=== PATIENT | male | born 1980 | race Caucasian/White ===

== ENCOUNTER 2017-09-25 14:27 | Emergency (ER) | payer MEDICAID ==
--- OUTSIDE RECORDS SUMMARY | 2017-09-25 14:29 | XMS REPORT ---
:1980 Author Organization eClinicalWorks Care Team Providers Name Role Phone Bell, Na Provider Role Unavailable Allergies, Adverse Reactions, Alerts Substance Reaction Event Type codeine itch Drug Allergy Problems Problem Type Condition Code Onset Dates Condition Status Assessment Reflux K21.9 Active Problem HTN (hypertension) I10 Active Problem Seizures R56.9 Active Problem Depression F32.9 Active Assessment HTN (hypertension) I10 Active Assessment Depression F32.9 Active Problem Reflux K21.9 Active Problem Sinus problem J34.9 Active Medications Medication Code Code Instructions Start End Status Dosage System Date Date Zoloft [facility] 21312392912 100 MG Orally Active 1 tablet Once a day Lamictal ND 98278150223 150 MG Orally Active 1 tablet Twice a day Lisinopril ND 03219947010 20 MG Orally Active 1 tablet Once a day Zyrtec Allergy [facility] 15061872826 10 MG Orally Active 1 tablet Once a day Zantac 150 ND 61904261405 150 MG Orally Active 1 tablet Maximum Once a day at bedtime Strength Results No Known Results Summary Purpose eClinicalWorks Submission
[2017-09-25] MEDS ORDERED: CLINDAMYCIN 600MG/D5W 600 MG/50 ML BAG IV ONE (15:07)
[2017-09-25] MEDS ORDERED: KETOROLAC 30 MG/ML INJ ONE (15:07)
[2017-09-25] MEDS ORDERED: NA CHLORIDE 0.9% 1,000 ML ONE (15:07)
[2017-09-25 15:47] LABS: BUN Blood Urea Nitrogen 11 mg/dL (7-18); Bicarbonate 24 mmol/L (21-32); Glucose Level 103 mg/dL (74-106); Potassium 3.7 mmol/L (3.5-5.1); Sodium Level 140 mmol/L (136-145)
[2017-09-25 15:48] LABS: Absolute Lymphocytes (CBC) 1.7 K/uL (0.7-4.9); Absolute Monocytes 0.6 K/uL (0.1-1.3); Absolute Neutrophil 5.5 K/uL (1.8-8.0); Basophils % 0.1 % (0-1.3); Hematocrit 43.9 % (39.6-49.0); Lymphocytes % 21.4 % (15.3-44.8); MCH 28.7 pg (27.0-35.0); MCV 84.5 fL (80-100); MPV 7.5 fL (7.6-11.3); Monocytes % 8.1 % (3.3-12.3); RBC Red Blood Cell Count 5.19 M/uL (4.33-5.43)
--- NOTE | 2017-09-25 16:07 | RAD REPORT ---
EXAM DESCRIPTION: US - Extremity Nonvascular Limited - 09/25/2017 3:46 pm CLINICAL HISTORY: Left posterior thigh pain and swelling COMPARISON: None FINDINGS: A 13 x 12 x 7 millimeter fluid collection is present within the subcutaneous tissues of th e posterior left thigh 6 millimeters from the skin surface. IMPRESSION: 13 x 12 x 7 millimeter fluid collection within the subcutaneous tissues of the posterior left thigh likely represents a small abscess
[2017-09-25] MEDS ORDERED: DIAZEPAM 10 MG/2 ML INJ SYRINGE ONE (16:35)
[2017-09-25] MEDS ORDERED: LIDOCAINE 1% MPF 5 ML VIAL ONE (16:35)
--- NOTE | 2017-09-25 17:23 | EDPHYS ---
Physician Documentation [facility] Name: Jair Gomez Age: 37 yrs Sex: Male : 1980 Arrival Date: 09/25/2017 Time: 14:29 Bed 25 Private MD: Ava Bell ED Physician Yuriy Coronel HPI: 09/25 14:59 This 37 yrs old Male presents to ER via Ambulatory with complaints of Abscess.snw 14:59 The patient presents with an abscess of the left hamstring. Description: well snw demarcated, erythematous, swollen, tense. Onset: The symptoms/episode began/occurred 4 day(s) ago, and became persistent. Associated signs and symptoms: Pertinent positives: nausea, tenderness. Severity of symptoms: At their worst the symptoms were moderate. The patient has not experienced similar symptoms in the past. The patient has not recently seen a physician. hx of CP, last seizure one month ago. Historical: - Allergies: 14:35 Codeine; aj1 - Home Meds: 14:35 Madhuri Oral [Active]; Baclofen Oral [Active]; Keppra Oral [Active]; Lamictal Oral aj1 [Active]; lisinopril Oral [Active]; Prilosec 2.5 mg Oral suDR [Active]; Primidone Oral [Active]; Zoloft Oral [Active]; Zonegran 25 mg Oral cap [Active]; - PMHx: 14:35 Cerebral Palsy; Seizures; aj1 - Immunization history:: Flu vaccine is up to date. - Social history:: Smoking status: Patient/guardian denies using tobacco. - Ebola Screening: : Patient denies travel to an Ebola-affected area in the 21 days before illness onset. ROS: 14:58 Constitutional: Negative for fever, chills, and weight loss, Eyes: Negative for injury, snw pain, redness, and discharge, ENT: Negative for injury, pain, and discharge, Neck: Negative for injury, pain, and swelling, Cardiovascular: Negative for chest pain, palpitations, and edema, Respiratory: Negative for shortness of breath, cough, wheezing, and pleuritic chest pain, Abdomen/GI: Negative for abdominal pain, nausea, vomiting, diarrhea, and constipation, Back: Negative for injury and pain, : Negative for injury, bleeding, discharge, and swelling, MS/Extremity: Negative for injury and deformity, Neuro: Negative for headache, weakness, numbness, tingling, and seizure, Psych: Negative for depression, anxiety, suicide ideation, homicidal ideation, and hallucinations. 14:58 Skin: Positive for avulsion, cellulitis, of the left upper posterior thigh. Exam: 14:57 Constitutional: This is a well developed, well nourished patient who is awake, alert, snw and in no acute distress. Head/Face: Normocephalic, atraumatic. Eyes: Pupils equal round and reactive to light, extra-ocular motions intact. Lids and lashes normal. Conjunctiva and sclera are non-icteric and not injected. Cornea within normal limits. Periorbital areas with no swelling, redness, or edema. ENT: Nares patent. No nasal discharge, no septal abnormalities noted. Tympanic membranes are normal and external auditory canals are clear. Oropharynx with no redness, swelling, or masses, exudates, or evidence of obstruction, uvula midline. Mucous membranes moist. Neck: Trachea midline, no thyromegaly or masses palpated, and no cervical lymphadenopathy. Supple, full range of motion without nuchal rigidity, or vertebral point tenderness. No Meningismus. Chest/axilla: Normal chest wall appearance and motion. Nontender with no deformity. No lesions are appreciated. Cardiovascular: Regular rate and rhythm with a normal S1 and S2. No gallops, murmurs, or rubs. Normal PMI, no JVD. No pulse deficits. Respiratory: Lungs have equal breath sounds bilaterally, clear to auscultation and percussion. No rales, rhonchi or wheezes noted. No increased work of breathing, no retractions or nasal flaring. Abdomen/GI: Soft, non-tender, with normal bowel sounds. No distension or tympany. No guarding or rebound. No evidence of tenderness throughout. Back: No spinal tenderness. No costovertebral tenderness. Full range of motion. MS/ Extremity: Pulses equal, no cyanosis. Neurovascular intact. Full, normal range of motion. Neuro: Awake and alert, GCS 15, oriented to person, place, time, and situation. Cranial nerves II-XII grossly intact. Motor strength 5/5 in all extremities. Sensory grossly intact. Cerebellar exam normal. Normal gait. Psych: Awake, alert, with orientation to person, place and time. Behavior, mood, and affect are within normal limits. 14:57 Skin: Appearance: normal except for affected area, abscess, that is large, of the left leg, with induration, with pointing, that is obvious, with surrounding cellulitis, cellulitis, that is moderate, well demarcated, on the left upper posterior thigh. Vital Signs: 14:35 BP 119 / 83; Pulse 93; Resp 18; Temp 98.8(O); Pulse Ox 98% on R/A; Weight 108.86 kg aj1 (R); Height 5 ft. 8 in. (172.72 cm) (R); Pain 8/10; 15:41 BP 110 / 58; Pulse 86; Resp 14; Pulse Ox 99% on R/A; Pain 5/10; ch 17:11 BP 125 / 74; Pulse 79; Resp 14; Pulse Ox 100% on R/A; Pain 2/10; ch 14:35 Body Mass Index 36.49 (108.86 kg, 172.72 cm) aj Procedures: 17:24 I \T\ D: Incision and drainage was performed for an abscess of the left left hamstring snw Prepped with hibiclens. Anesthetized with 5 ml's 1% Lidocaine. Incised with #11 blade. Drained moderate amount purulent fluid. Loculations removed. Abscess cavity explored. Packed with iodoform gauze, Dressing: sterile 4x4 gauze, the patient tolerated the procedure well. MDM: 14:44 Patient medically screened. snw 17:23 Data reviewed: vital signs, nurses notes. Data interpreted: Pulse oximetry: on room air snw is 100 %. Interpretation: normal. Counseling: I had a detailed discussion with the patient and/or guardian regarding: the historical points, exam findings, and any diagnostic results supporting the discharge/admit diagnosis, lab results, radiology results, the need for outpatient follow up, to return to the emergency department if symptoms worsen or persist or if there are any questions or concerns that arise at home. Special discussion: I discussed in detail with the patient the higher chance of wound infection based on his presenting history. Based on the history and exam findings, there is no indication for further emergent testing or inpatient evaluation. I discussed with the patient/guardian the need to see the primary care provider for further evaluation of the symptoms. 09/25 14:57 Order name: CBC with Diff; Complete Time: 15:55 snw 09/25 14:57 Order name: Chem 7; Complete Time: 15:49 snw 09/25 14:57 Order name: Blood Culture Adult (2) snw 09/25 14:57 Order name: Extrmty Nonvasular Limited; Complete Time: 16:09 snw 09/25 14:57 Order name: NPO; Complete Time: 15:47 snw 09/25 16:11 Order name: I\T\D Setup; Complete Time: 16:43 snw Administered Medications: 15:46 Drug: Clindamycin 600 mg Route: IVPB; Infused Over: 30 mins; Site: left wrist; ch 16:43 Follow up: IV Status: Completed infusion; IV Intake: 50ml ch 15:47 Drug: NS 0.9% 1000 ml Route: IV; Rate: 75 ml/hr; Site: left wrist; ch 17:54 Follow up: Response: No adverse reaction; IV Status: Order to discontinue infusion mg2 15:47 Drug: TORadol 30 mg Route: IVP; Site: left wrist; ch 16:04 Follow up: Response: No adverse reaction; Pain is decreased ch 16:43 Drug: Valium 2 mg Route: IVP; Site: left wrist; ch 17:21 Follow up: Response: No adverse reaction ch 17:21 Drug: Lidocaine (1 %) 1 vials Volume: 5 ml; Route: Infiltration; ch Disposition: 09/26 14:32 Co-signature as Attending Physician, Yuriy Coronel MD I agree with the assessment and jake plan of care. Disposition: 09/25/17 17:23 Discharged to Home. Impression: Cutaneous abscess of left lower limb. - Condition is Stable. - Discharge Instructions: Skin Abscess, Incision and Drainage, Incision and Drainage, Care After. - Prescriptions for Clindamycin HCl 300 mg Oral Capsule - take 1 capsule by ORAL route every 6 hours for 10 days; 40 capsule. - Medication Reconciliation Form, Thank You Letter, Antibiotic Education, Prescription Opioid Use form. - Follow up: Ava Bell MD; When: 2 - 3 days; Reason: Recheck today's complaints, Continuance of care, Re-evaluation by your physician. Follow up: Emergency Department; When: As needed; Reason: Worsening of condition. Signatures: Dispatcher [employer] EDTosin Ji, RN RN Mercy Vang RN RN aj1 Yuriy Coronel MD MD cha Therrien, Shelly, SECOND BALLER-C SECOND BALLER-[facility] Ashvin Ku, RN RN mg2 Corrections: (The following items were deleted from the chart) 09/25 17:55 17:23 09/25/2017 17:23 Discharged to Home. Impression: Cutaneous abscess of left lower mg2 limb. Condition is Stable. Forms are Medication Reconciliation Form, Thank You Letter, Antibiotic Education, Prescription Opioid Use. Follow up: Ava Bell; When: 2 - 3 days; Reason: Recheck today's complaints, Continuance of care, Re-evaluation by your physician. Follow up: Emergency Department; When: As needed; Reason: Worsening of condition. snw
--- NOTE | 2017-09-25 17:23 | ER ---
Nurse's Notes [facility] Name: Jair Gomez Age: 37 yrs Sex: Male : 1980 Arrival Date: 09/25/2017 Time: 14:29 Bed 25 Private MD: Ava Bell Diagnosis: Cutaneous abscess of left lower limb Presentation: 09/25 14:30 Presenting complaint: Mother states: He was complaining it was hard to sit down, so she aj1 look and found a red swollen area that looked like it needed to be drained. Transition of care: patient was not received from another setting of care. Onset of symptoms was September 25, 2017. Risk Assessment: Do you want to hurt yourself or someone else? Patient reports no desire to harm self or others. Initial Sepsis Screen: Does the patient meet any 2 criteria? No. Patient's initial sepsis screen is negative. Does the patient have a suspected source of infection? No. Patient's initial sepsis screen is negative. Care prior to arrival: None. 14:30 Method Of Arrival: Ambulatory aj1 14:30 Acuity: SAMMI 4 aj1 Triage Assessment: 14:35 General: Appears in no apparent distress. comfortable, Behavior is calm, cooperative, aj1 appropriate for age. Pain: Complains of pain in left gluteal fold. Neuro: Level of Consciousness is awake, alert, obeys commands. Cardiovascular: Patient's skin is warm and dry. Respiratory: Airway is patent Respiratory effort is even, unlabored, Respiratory pattern is regular, symmetrical. Historical: - Allergies: 14:35 Codeine; aj1 - Home Meds: 14:35 Madhuri Oral [Active]; Baclofen Oral [Active]; Keppra Oral [Active]; Lamictal Oral aj1 [Active]; lisinopril Oral [Active]; Prilosec 2.5 mg Oral suDR [Active]; Primidone Oral [Active]; Zoloft Oral [Active]; Zonegran 25 mg Oral cap [Active]; - PMHx: 14:35 Cerebral Palsy; Seizures; aj1 - Immunization history:: Flu vaccine is up to date. - Social history:: Smoking status: Patient/guardian denies using tobacco. - Ebola Screening: : Patient denies travel to an Ebola-affected area in the 21 days before illness onset. Screenin:41 Abuse screen: Denies threats or abuse. Denies injuries from another. Nutritional ch screening: No deficits noted. Tuberculosis screening: No symptoms or risk factors identified. Fall Risk None identified. Assessment: 15:41 Reassessment: Patient appears in no apparent distress at this time. Patient and/or ch family updated on plan of care and expected duration. Pain level reassessed. Patient is alert, oriented x 3, equal unlabored respirations, skin warm/dry/pink. General: Appears in no apparent distress. comfortable, Behavior is calm, cooperative, appropriate for age. Pain: Complains of pain in left hamstring Pain currently is 6 out of 10 on a pain scale. at worst was 9 out of 10 on a pain scale. Pain began gradually, 2-3 days ago. Neuro: No deficits noted. Cardiovascular: No deficits noted. Respiratory: Airway is patent Respiratory effort is even, unlabored, Breath sounds are clear bilaterally. GI: No signs and/or symptoms were reported involving the gastrointestinal system. : No signs and/or symptoms were reported regarding the genitourinary system. Derm: Skin is intact, Skin is pink, warm \T\ dry. Abscess located on left hamstring is wound is approx 20 cm in diameter has no drainage, is hot to touch, is red, is raised. 16:44 Reassessment: Patient appears in no apparent distress at this time. Patient and/or ch family updated on plan of care and expected duration. Pain level reassessed. Patient is alert, oriented x 3, equal unlabored respirations, skin warm/dry/pink. Patient states feeling better. Patient states symptoms have improved. 17:11 Reassessment: Patient appears in no apparent distress at this time. Patient and/or ch family updated on plan of care and expected duration. Pain level reassessed. Patient is alert, oriented x 3, equal unlabored respirations, skin warm/dry/pink. pt tolerates vallum well, is very calm and mellow. 17:22 Reassessment: Patient appears in no apparent distress at this time. report given to igor Lock rn. Vital Signs: 14:35 BP 119 / 83; Pulse 93; Resp 18; Temp 98.8(O); Pulse Ox 98% on R/A; Weight 108.86 kg aj1 (R); Height 5 ft. 8 in. (172.72 cm) (R); Pain 8/10; 15:41 BP 110 / 58; Pulse 86; Resp 14; Pulse Ox 99% on R/A; Pain 5/10; ch 17:11 BP 125 / 74; Pulse 79; Resp 14; Pulse Ox 100% on R/A; Pain 2/10; ch 14:35 Body Mass Index 36.49 (108.86 kg, 172.72 cm) aj1 ED Course: 14:29 Patient arrived in ED. rg4 14:29 Ava Bell MD is Private Physician. rg4 14:34 Triage completed. aj1 14:35 Arm band placed on Patient placed in an exam room. aj1 14:44 [facility]en [facility]-C [facility]. snw 14:44 Yuriy Coronel MD is Attending Physician. snw 15:34 Tosin Turner, LOGAN is Primary Nurse. ch 15:41 No apparent distress. Resting quietly. ch 15:41 Patient has correct armband on for positive identification. Placed in gown. Bed in low ch position. Call light in reach. Side rails up X 1. Pulse ox on. NIBP on. Warm blanket given. 15:41 Inserted saline lock: 22 gauge in left wrist, using aseptic technique. ch 15:44 Ultrasound completed. Patient tolerated well. sg3 15:47 US Extrmty Nonvasular Limited In Process Unspecified. EDMS 17:11 Assist provider with I \T\ D: of an abscess on left hamstring Performed by Ayanna CHAVARRIA Wound packed. iodoform gauze, Dressing with 4X4s, tape Patient tolerated well. 17:22 Ava Bell MD is Referral Physician. snw 17:54 IV discontinued, intact, bleeding controlled, No redness/swelling at site. Pressure mg2 dressing applied. Administered Medications: 15:46 Drug: Clindamycin 600 mg Route: IVPB; Infused Over: 30 mins; Site: left wrist; ch 16:43 Follow up: IV Status: Completed infusion; IV Intake: 50ml ch 15:47 Drug: NS 0.9% 1000 ml Route: IV; Rate: 75 ml/hr; Site: left wrist; ch 17:54 Follow up: Response: No adverse reaction; IV Status: Order to discontinue infusion mg2 15:47 Drug: TORadol 30 mg Route: IVP; Site: left wrist; ch 16:04 Follow up: Response: No adverse reaction; Pain is decreased ch 16:43 Drug: Valium 2 mg Route: IVP; Site: left wrist; ch 17:21 Follow up: Response: No adverse reaction ch 17:21 Drug: Lidocaine (1 %) 1 vials Volume: 5 ml; Route: Infiltration; Intake: 16:43 IV: 50ml; Total: 50ml. ch Outcome: 17:23 Discharge ordered by . snw 17:54 Discharged to home via wheelchair, with family. mg2 17:54 Condition: stable 17:54 Discharge instructions given to patient, family, Instructed on discharge instructions, follow up and referral plans. medication usage, Demonstrated understanding of instructions, follow-up care, medications, Prescriptions given X 1. 17:55 Patient left the ED. mg2 Signatures: Dispatcher [employer] EDTosin Ji, RN RN Mercy Vang RN RN aj1 Ayanna Yuen, DIAGNOSTIC MEDICAL SONOGRAPHER-C DIAGNOSTIC MEDICAL SONOGRAPHER-[place] 4 Tanja Venegas 3 Ashvin Ku RN RN mg2 Corrections: (The following items were deleted from the chart) 17:13 15:41 No provider procedures requiring assistance completed. [facility]
== END 2017-09-25 17:55 | disposition home or self-care (01) ==
LOC: ER 14:27
PROC: 0H9JXZZ Drainage of Left Upper Leg Skin, External Approach (ICD-10-PCS; principal; 2017-09-25)
DX: L02.416 Cutaneous abscess of left lower limb (principal); G80.9 Cerebral palsy, unspecified; Z88.6 Allergy status to analgesic agent
CPT/HCPCS: 10060; 36415; 76882; 80048; 85025; 87040; 96361; 96365; 96375; 99284; J3360; J7030